=== PATIENT | female | born 1945 | race Caucasian/White ===

== ENCOUNTER 2017-01-04 09:46 | Outpatient (CLI) | payer MEDICARE, OTHER ==
--- NOTE | 2017-01-04 11:14 | MMO ---
BILATERAL SCREENING MAMMOGRAM: HISTORY: A 71-year-old female for screening mammography. The patient has a history of right breast cancer in 2000 status post lumpectomy and radiation therapy. COMPARISON: 03/24/15, 03/17/14, 02/27/13. FINDINGS: Bilateral MLO and CC views of the breasts show scattered fibroglandular breast tissue. The right br east is smaller than the left secondary to post lumpectomy and radiation therapy change. There are benign-appearing calcifications in the right breast. Architectural distortion in the right breast i s from prior surgery and radiation therapy. There is no evidence of suspicious mass, suspicious clu ster of microcalcifications, or new area of architectural distortion. A few benign-appearing calcif ications are seen in the left breast. Interpretation of this mammogram was performed with the assistance of computer-aided detection. IMPRESSION: BI-RADS category 2 - benign findings. Annual screening mammography is recommended. POS: [facility]
== END 2017-01-04 09:47 | disposition home or self-care (01) ==
LOC: MAMMO 09:46
PROVIDERS: ATTEND Obstetrics & Gynecology
DX: Z12.31 Encounter for screening mammogram for malignant neoplasm of breast (principal)
CPT/HCPCS: 77067; G0202

== ENCOUNTER 2018-03-28 10:50 | Outpatient (CLI) | payer MEDICARE, OTHER | END 2018-03-28 10:51 | disposition home or self-care (01) | LOC: BICMAMMO 10:50 | PROVIDERS: ATTEND Obstetrics & Gynecology | DX: Z12.31 Encounter for screening mammogram for malignant neoplasm of breast (principal); R92.1 Mammographic calcification found on diagnostic imaging of breast; Z85.3 Personal history of malignant neoplasm of breast | CPT/HCPCS: 77063; 77067 ==

== ENCOUNTER 2018-04-12 14:18 | Outpatient (CLI) | payer MEDICARE, OTHER | END 2018-04-12 14:19 | disposition home or self-care (01) | LOC: BICMAMMO 14:18 | PROVIDERS: ATTEND Obstetrics & Gynecology | DX: R92.1 Mammographic calcification found on diagnostic imaging of breast (principal); Z85.3 Personal history of malignant neoplasm of breast | CPT/HCPCS: 77065; G0279 ==

== ENCOUNTER → 2018-05-09 | Day surgery (SDC) | payer MEDICARE ==
--- NOTE | 2018-05-09 08:53 | MMO ---
STEREOTACTIC GUIDANCE FOR LEFT BREAST BIOPSY SURGICAL SPECIMEN MAMMOGRAPHY LEFT DIAGNOSTIC MAMMOGRAM POST BIOPSY: HISTORY: Abnormal mammogram. Microcalcifications. FINDINGS: Prior mammograms were reviewed. A superior approach was planned. Stereotactic imaging performed. Stereotactic guidance was used to calculate position and depth for v acuum biopsy as performed by Dr. Malcolm. Surgical specimen mammography shows microcalcifications in the specimen tissue. Diagnostic mammogram performed after the procedure shows the microcalcifications to have been removed . Small pocket of gas and localization clip at the biopsy bed. IMPRESSION: Technically successful stereotactic guidance for biopsy as performed by Dr. Malcolm. POS: [facility]
--- NOTE | 2018-05-10 18:28 | OP ---
DATE OF PROCEDURE: 05/09/2018 PREOPERATIVE DIAGNOSIS: Left breast microcalcifications. POSTOPERATIVE DIAGNOSIS: Left breast microcalcifications. OPERATION PERFORMED: Left breast stereotactic biopsy with clip placement. RADIOLOGIST: Abad Marcos MD ANESTHESIA: 1% lidocaine with epinephrine. INDICATIONS: This patient is a 72-year-old white female. She presents with a potentially concerning cluster of microcalcifications in the lateral left breast. Stereotactic biopsy of this was recommended. DESCRIPTION OF OPERATION: Informed consent was obtained. The patient was placed in the prone position on the stereotactic imaging table. Craniocaudal compression was selected, and the calcifications were localized by Dr. Marcos. The coordinates were transmitted to the biopsy table. The appropriate area of the breast was prepped with Betadine and locally anesthetized with 1% lidocaine with epinephrine. A small stab incision was created and needle was advanced into the breast. Pre and post-fire images were obtained. Six circumferential vacuum-assisted biopsy specimens were obtained. The imaging of the specimens revealed calcifications were present. The biopsy needle was removed. The incision site was closed with Steri-Strips. A localizing clip had been placed into the biopsy site before the needle was removed. Postprocedure mammogram was obtained. There were no complications. The patient tolerated the procedure well. Blood loss was negligible. Job ID: [id number]
== END ==
LOC: MAMMO 06:57
PROVIDERS: ATTEND Specialist
PROC: 0HBU3ZX Excision of Left Breast, Percutaneous Approach, Diagnostic (ICD-10-PCS; principal; 2018-05-09)
DX: N60.22 Fibroadenosis of left breast (principal); N60.82 Other benign mammary dysplasias of left breast; R92.1 Mammographic calcification found on diagnostic imaging of breast
CPT/HCPCS: 19081; 76098; 88305; 88341; 88342

== ENCOUNTER 2018-05-18 13:15 | Outpatient (CLI) | payer MEDICARE ==
--- NOTE | 2018-05-18 14:23 | BD ---
DEXA SCAN: Date: 05/18/18 PROVIDED CLINICAL HISTORY: Screening. FINDINGS: Lumbar Spine: BMD (g/cm2) L1 0.927 T-Score: -0.6 Z-Score: 1.4 L2 1.092 T-Score: -0.6 Z-Score: 2.7 L3 1.239 T-Score: 1.4 Z-Score: 3.7 L4 1.210 T-Score: 1.4 Z-Score: 3.7 L1-L4 1.123 T-Score: 0.7 Z-Score: 2.9 Femoral Neck: 0.739 T-Score: -1.0 Z-Score: 1.9 Total Femur: 1.108 T-Score: 1.4 Z-Score: 3.0 IMPRESSION: Calculated bone mineral density meets WHO criteria for normal. POS: [facility]
== END 2018-05-18 13:16 | disposition home or self-care (01) ==
LOC: BICMAMMO 13:15
PROVIDERS: ATTEND Obstetrics & Gynecology
DX: Z13.820 Encounter for screening for osteoporosis (principal)
CPT/HCPCS: 77080

== ENCOUNTER 2019-04-01 10:57 | Outpatient (CLI) | payer MEDICARE ==
--- NOTE | 2019-04-01 13:27 | MMO ---
Bilateral MAMMO Bilat Screen [facility]. CLINICAL HISTORY: Patient is 73 years old and is seen for screening. The patient has no family history of breast cancer. The patient has a history of malignant (generic) in the right breast at age 55. VIEWS: The views performed were: bilateral craniocaudal with tomosynthesis and bilateral mediolateral oblique with tomosynthesis. FILMS COMPARED: The present examination has been compared to prior imaging studies performed at [facility] on 03/28/2018, 04/12/2018 and 04/01/2019. This study has been interpreted with the assistance of computer-aided detection. MAMMOGRAM FINDINGS: There are scattered fibroglandular densities. There is a new focal asymmetry seen in the MLO view only seen in the upper region of the right breast. In the left breast, there are no suspicious masses, calcifications or areas of architectural distortion. IMPRESSION: NEW FOCAL ASYMMETRY IN THE RIGHT BREAST REQUIRES ADDITIONAL EVALUATION. ADDITIONAL IMAGING. THE RESULTS OF THIS EXAM WERE SENT TO THE PATIENT. ACR BI-RADS Category 0 - Incomplete: Need additional imaging evaluation. [facility] will notify the patient of the need for additional imaging services. MAMMOGRAPHY NOTE: 1. A negative mammogram report should not delay a biopsy if a dominant of clinically suspicious mass is present. 2. Approximately 10% to 15% of breast cancers are not detected by mammography. 3. Adenosis and dense breasts may obscure an underlying neoplasm. Reported by: LB TAYLOR MD Electonically Signed: [id number]
== END 2019-04-01 10:58 | disposition home or self-care (01) ==
LOC: BICMAMMO 10:57
PROVIDERS: ATTEND Obstetrics & Gynecology
DX: Z12.31 Encounter for screening mammogram for malignant neoplasm of breast (principal); N64.89 Other specified disorders of breast
CPT/HCPCS: 77063; 77067

== ENCOUNTER 2019-04-11 09:52 | Outpatient (CLI) | payer MEDICARE ==
--- NOTE | 2019-04-11 10:50 | MMO ---
Right Breast MAMMO Unilat Diag [facility]DI [facility]+PJ. CLINICAL HISTORY: Patient is 73 years old and is seen for additional evaluation requested from prior study. The patient has no family history of breast cancer. The patient has a history of malignant (generic) in the right breast at age 55. VIEWS: The views performed were: right craniocaudal spot compression with tomosynthesis; right mediolateral oblique spot compression with tomosynthesis; and right mediolateral with tomosynthesis. FILMS COMPARED: The present examination has been compared to prior imaging studies performed at [facility] on 03/28/2018, 04/12/2018, 04/01/2019 and 04/11/2019. This study has been interpreted with the assistance of computer-aided detection. MAMMOGRAM FINDINGS: There are scattered fibroglandular densities. Finding 1: There is a stable post-surgical scar seen in the upper region of the right breast. Finding 2: There is a new oval mass measuring 6 millimeters with indistinct margins seen in the posterior upper region of the right breast. Solid mass on ultrasound. IMPRESSION: FINDING 1: STABLE POST-SURGICAL SCAR IN THE RIGHT BREAST IS BENIGN. FINDING 2: NEW MASS IN THE RIGHT BREAST IS SUSPICIOUS. AN ULTRASOUND-GUIDED BREAST BIOPSY IS RECOMMENDED. THE RESULTS OF THIS EXAM WERE SENT TO THE PATIENT. ACR BI-RADS Category 4 - Suspicious abnormality - biopsy should be considered MAMMOGRAPHY NOTE: 1. A negative mammogram report should not delay a biopsy if a dominant of clinically suspicious mass is present. 2. Approximately 10% to 15% of breast cancers are not detected by mammography. 3. Adenosis and dense breasts may obscure an underlying neoplasm. Reported by: AWAIS ARREOLA MD Electonically Signed: [id number]
--- NOTE | 2019-04-11 11:08 | ULT ---
RIGHT BREAST ULTRASOUND: HISTORY: The patient returns for additional views of the right breast and right breast ultrasound to evaluate a density in the upper aspect of the right breast. FINDINGS: There is a large area of scar in the right breast including the 10, 11, and 12 o'clock regions. The re is a fairly well circumscribed oval slightly hypoechoic solid mass adjacent to the scar at 12 o'cl ock measuring 0.6 x 1.3 x 0.7 cm. This mass is immediately adjacent to the scar and approximately 5 cm from the nipple. I feel that this mass probably corresponds to the new nodular area of concern on the mammogram. Since this is a new finding, ultrasound-guided biopsy is recommended. IMPRESSION: Fairly well circumscribed oval solid mass at 12 o'clock approximately 5 cm from the nipple immediatel y adjacent to the large scar probably corresponds to the new mammographic finding. Ultrasound-guided biopsy is recommended. This was discussed with the patient who is in agreement and the patient will be scheduled for that procedure. POS: [facility]
== END 2019-04-11 09:53 | disposition home or self-care (01) ==
LOC: BICMAMMO 09:52
PROVIDERS: ATTEND Obstetrics & Gynecology
DX: R92.2 Inconclusive mammogram (principal); N63.11 Unspecified lump in the right breast, upper outer quadrant
CPT/HCPCS: 76642; 77065; G0279

== ENCOUNTER 2020-04-14 12:53 | Outpatient (CLI) | payer MEDICARE, OTHER ==
--- NOTE | 2020-04-14 14:00 | MMO ---
Bilateral MAMMO Bilat Screen [facility]. CLINICAL HISTORY: Patient is 74 years old and is seen for screening. The patient has no family history of breast cancer. The patient has a history of malignant (generic) in the right breast at age 55. The patient has a history of right needle biopsy in April, - benign and left needle biopsy in April, - benign. VIEWS: The views performed were: bilateral craniocaudal with tomosynthesis and bilateral mediolateral oblique with tomosynthesis. FILMS COMPARED: The present examination has been compared to prior imaging studies performed at [facility] on 04/12/2018, 04/01/2019 and 04/11/2019. This study has been interpreted with the assistance of computer-aided detection. MAMMOGRAM FINDINGS: There are scattered fibroglandular densities. Benign calcifications are noted bilaterally. There are stable right sided post-operative changes. There are no suspicious masses, suspicious calcifications, or new areas of architectural distortion. IMPRESSION: THERE IS NO MAMMOGRAPHIC EVIDENCE OF MALIGNANCY. A ROUTINE FOLLOW-UP MAMMOGRAM IN 1 YEAR IS RECOMMENDED. THE RESULTS OF THIS EXAM WERE SENT TO THE PATIENT. ACR BI-RADS Category 2 - Benign finding MAMMOGRAPHY NOTE: 1. A negative mammogram report should not delay a biopsy if a dominant of clinically suspicious mass is present. 2. Approximately 10% to 15% of breast cancers are not detected by mammography. 3. Adenosis and dense breasts may obscure an underlying neoplasm. Reported by: WESLY LI MD Electonically Signed: [id number]
== END 2020-04-14 12:54 | disposition home or self-care (01) ==
LOC: BICMAMMO 12:53
PROVIDERS: ATTEND Obstetrics & Gynecology
DX: Z12.31 Encounter for screening mammogram for malignant neoplasm of breast (principal); Z85.3 Personal history of malignant neoplasm of breast
CPT/HCPCS: 77063; 77067

== ENCOUNTER 2021-04-16 09:57 | Outpatient (CLI) | payer MEDICARE | END 2021-04-16 09:58 | disposition home or self-care (01) | LOC: BICMAMMO 09:57 | PROVIDERS: ATTEND Obstetrics & Gynecology | DX: Z12.31 Encounter for screening mammogram for malignant neoplasm of breast (principal); Z85.3 Personal history of malignant neoplasm of breast | CPT/HCPCS: 77063; 77067 ==

== ENCOUNTER 2024-01-19 13:55 | Outpatient (CLI) | payer MEDICARE | END 2024-01-19 13:56 | disposition home or self-care (01) | LOC: BICRAD 13:55 | PROVIDERS: ATTEND Obstetrics & Gynecology | DX: M54.50 Low back pain, unspecified (principal); M47.816 Spondylosis without myelopathy or radiculopathy, lumbar region; M47.817 Spondylosis without myelopathy or radiculopathy, lumbosacral region | CPT/HCPCS: 72100 ==